=== PATIENT | female | born 1955 | race Two or more races ===

== ENCOUNTER → 2023-05-18 | Emergency (ER) | payer OTHER ==
[~2023-05-18] VITALS: Ht 147.3 cm; Wt 95.3 kg
[~2023-05-18] MED LIST: BUTALBIT-ACETA1 EACH PO; SIMVASTATIN5 MG
[2023-05-18 11:08] LABS: HEMATOCRIT 36.8 % (36.0-45.00); HEMOGLOBIN 11.9 g/dL (12.0-15.00); MEAN CELL VOLUME 81.1 fL (80.00-100.00); MEAN CORPUSCULAR HEMOGLOBIN 26.3 pg (27.00-32.0); MEAN CORPUSCULAR HGB CONC 32.4 g/dl (32.0-36.0); PLATELET COUNT 237 K/uL (150-450); RED BLOOD COUNT 4.54 M/uL (4.00-6.00); RED CELL DISTRIBUTION WIDTH 17.1 % (11.5-14.5)
== END | disposition home or self-care (01) ==
LOC: ER 09:02
PROVIDERS: General Practice
DX: R53.81 Other malaise (principal); G43.909 Migraine, unspecified, not intractable, without status migrainosus; Z20.822 Contact with and (suspected) exposure to COVID-19; I10 Essential (primary) hypertension
CPT/HCPCS: 36415; 96365; 99282; J1885